=== PATIENT | male | born 1990 | race Caucasian/White ===

== ENCOUNTER 2021-02-11 21:06 | Emergency (ER) | payer OTHER ==
[~2021-02-11] VITALS: Ht 182.9 cm; Wt 115.0 kg
[2021-02-11 21:12] VITALS: TEMP 98
[2021-02-11 22:07] LABS: BASO % 0.3 % (0.0-2.0); EOS # 0.1 (0.0-0.7); EOS % 0.6 % (0-4.0); GRAN # 8.4 (1.4-6.5); GRAN % 82.1 % (42.2-75.2); LYMPH # 1.2 (1.2-3.4); LYMPH % 12.2 % (20.0-51.0); MEAN CELL VOLUME 89 fl (80.0-100.0); MEAN CORPUSCULAR HEMOGLOBIN 31 pg (27.0-31.0); MEAN CORPUSCULAR HGB CONC 35 g/dl (33.0-37.0); MEAN PLATELET VOLUME 11.5 fl (7.4-10.4); MONO # 0.4 (0.1-0.6); MONO % 3.7 % (1.7-9.3); PLATELET COUNT 215 K/mm3 (130-400); RED BLOOD COUNT 4.83 M/mm3 (4.20-5.60); REDCELL DISTRIBUTION WIDTH-CV 11.7 % (11.5-14.5)
[2021-02-11 22:10] LABS: ALBUMIN 4.5 gm/dL (3.5-5.0); BILIRUBIN,TOTAL 0.3 mg/dL (0.0-1.0); CALCIUM 9.6 mg/dL (8.4-10.2); CREATININE, serum 0.97 (0.66-1.25); POTASSIUM 3.9 mmol/L (3.4-5.0)
[2021-02-11 22:21] LABS: TROPONIN-I 0.014 ng/mL (0.000-0.035)
[2021-02-11 22:57] VITALS: BP 126/70; PULSE 62
== END 2021-02-11 22:57 | disposition home or self-care (01) ==
LOC: COL.ER 21:06
PROVIDERS: Emergency Medicine
DX: K29.70 Gastritis, unspecified, without bleeding (principal)
CPT/HCPCS: C9113; J7030